=== PATIENT | female | born 1930 ===

== ENCOUNTER 2017-08-07 15:02 | Inpatient (IN) | payer MEDICARE, MEDICAID ==
[2017-08-07] MEDS ORDERED: Albuterol-Ipratrop 3 mg / 0.5 (3 ml) UD IH STA (15:30)
[2017-08-07] MEDS ORDERED: Albuterol-Ipratrop 3 mg / 0.5 (3 ml) UD INH STA ×2 (15:30→15:31)
[2017-08-07] MEDS ORDERED: Albuterol-Ipratrop 3 mg / 0.5 (3 ml) UD ONE (15:45)
--- NOTE | 2017-08-07 15:52 | ED PDOC ---
HPI: CCC, URI, Sore Throat Time Seen by Provider: 08/07/17 15:16 Chief Complaint (Nursing): Flu-like Symptoms Chief Complaint (Provider): Flu-like symptoms History Per: Patient, Family (daughter) History/Exam Limitations: no limitations Onset/Duration Of Symptoms: Days (x6) Current Symptoms Are (Timing): Still Present Associated Symptoms: Fever, Cough, Nasal Congestion, Other (SOB, weakness) Ear Symptoms: Bilateral: None Additional Complaint(s): Nora Palomino is an 86 year old female, with a past medical history of hypertension, who was brought to the emergency department via EMS accompanied by daughter complaining of fever, dyspnea, dry cough, congestion, weakness and decreased appetite onset for x6 days. Patient states she is not able to tolerate foods or fluids. Daughter reports patient was seen by Dr. Fuller in [place] yesterday and was prescribed zithromax and ventolin inhaler but with no relief. Worsening symptoms today. She denies any headache, nausea, vomit, diarrhea, chest pain or abdominal pain. No further medical complaints. PMD: Dr. Fuller, [place]. Past Medical History Reviewed: Historical Data, Nursing Documentation, Vital Signs Vital Signs: Last Vital Signs Temp 98.7 F 08/07/17 15:27 Pulse 88 08/07/17 15:27 Resp 18 08/07/17 15:27 BP 109/51 L 08/07/17 15:27 Pulse Ox 88 L 08/07/17 18:08 - Medical History PMH: Arthritis (right hand), Diabetes (type II), HTN, Hypercholesterolemia, Pneumonia - Surgical History Surgical History: No Surg Hx - Family History Family History: States: Unknown Family Hx - Living Arrangements Living Arrangements: With Family - Social History Current smoker - smoking cessation education provided: No Alcohol: None Drugs: Denies - Home Medications Home Medications: Ambulatory Orders Medication Instructions Recorded Amlodipine Besylate/Benazepril 1 cap PO DAILY 02/04/16 [Amlodipine-Benazepril 5-20 mg] Glyburide 5 mg PO BID 02/04/16 Metformin HCl 850 mg PO BID 02/04/16 Albuterol HFA [Ventolin HFA 90 2 puff IH Q6H PRN 08/07/17 mcg/actuation (8 g)] Azithromycin [Z-Ambrocio] 250 mg PO ASDIR 02/15/18 Benzonatate [Benzonatate] 200 mg PO TID PRN 08/07/17 Enalapril Maleate [Vasotec] 2.5 mg PO DAILY 08/07/17 [id number] Ethyl Esters 1 GM 2 gm PO Q12H 08/07/17 [Lovaza] - Allergies Allergies/Adverse Reactions: Allergies Allergy/AdvReac Type Severity Reaction Status Date / Time alendronate sodium Allergy RASH Verified 07/23/16 19:07 ciprofloxacin [From Cipro] Allergy RASH Verified 07/23/16 19:07 ciprofloxacin HCl Allergy RASH Verified 07/23/16 19:07 [From Cipro] glipizide Allergy RASH Verified 07/23/16 19:07 mepivacaine HCl Allergy RASH Verified 07/23/16 19:07 [From Carbocaine] papaverine Allergy RASH Verified 07/23/16 19:07 risedronate sodium Allergy RASH Verified 07/23/16 19:07 [From Actonel] simvastatin Allergy RASH Verified 07/23/16 19:07 sitagliptin phosphate Allergy RASH Verified 07/23/16 19:07 [From Januvia] Review of Systems ROS Statement: Except As Marked, All Systems Reviewed And Found Negative Constitutional: Positive for: Fever, Weakness ENT: Positive for: Nose Congestion Cardiovascular: Negative for: Chest Pain Respiratory: Positive for: Cough, Shortness of Breath Gastrointestinal: Positive for: Other (decreased appetite). Negative for: Nausea, Vomiting, Abdominal Pain, Diarrhea Neurological: Positive for: Weakness. Negative for: Headache Physical Exam - Reviewed Nursing Documentation Reviewed: Yes Vital Signs Reviewed: Yes - Physical Exam Appears: Positive for: Uncomfortable Head Exam: Positive for: ATRAUMATIC, NORMAL INSPECTION, NORMOCEPHALIC Skin: Positive for: Normal Color, Warm, Dry Eye Exam: Positive for: Normal appearance, EOMI, PERRL ENT: Positive for: Nasal Congestion Neck: Positive for: Painless ROM, Supple Cardiovascular/Chest: Positive for: Regular Rate, Rhythm. Negative for: Murmur Respiratory: Positive for: Decreased Breath Sounds, Other (mild coarse b/l). Negative for: Respiratory Distress Gastrointestinal/Abdominal: Positive for: Normal Exam, Soft. Negative for: Tenderness, Guarding, Rebound Back: Positive for: Normal Inspection. Negative for: L CVA Tenderness, R CVA Tenderness, Vertebral Tenderness Extremity: Positive for: Normal ROM, Other (cachectic feet). Negative for: Tenderness, Swelling Neurologic/Psych: Positive for: Alert, it associate II-XII, Oriented. Negative for: Aphasia - Laboratory Results Result Diagrams: 08/07/17 15:50 08/07/17 15:50 Interpretation Of Abn Labs: no acute - ECG ECG: Positive for: Interpreted By Me, Viewed By Me ECG Rhythm: Positive for: Normal QRS, Normal ST Segment, Sinus Rhythm O2 Sat by Pulse Oximetry: 88 (RA) Pulse Ox Interpretation: Abnormal - Radiology X-Ray: Interpreted by Me, Viewed By Me X-Ray Interpretation: Infiltrates (R) - Progress ED Course And Treament: 190: Stable. AAOx3. Spoke with Dr. Akers. Will admit tele. - Critical Care Total Time (In Min): 30 Documented Critical Care: Time excludes all time spent performint seperately billable procedures Medical Decision Making Medical Decision Making: Initial Impression: Viral syndrome Initial Plan: --ABG Shock panel --EKG --B-Type Natriuretic peptide --Magnesium --Phosphorus --Troponin I --CBC w/ differential --PTT --PT --Chest portable [RAD] --Tylenol 325mg tab 975mg PO --Duoneb 3ml INH --Lactated ringers 500 ml IV suppled [Empty IV bag] 1 IV --SOLU-medrol 125 mg IVP --Blood culture --Urine culture --Nebulizer treatment --Peak flow pre/post Tx --Influenza A B --Urinalysis --Reevaluation Scribe Attestation: Documented by Sushil Bynum, acting as a scribe for Nazario Loomis MD Provider Scribe Attestation: All medical record entries made by the Scribe were at my direction and personally dictated by me. I have reviewed the chart and agree that the record accurately reflects my personal performance of the history, physical exam, medical decision making, and the department course for this patient. I have also personally directed, reviewed, and agree with the discharge instructions and disposition. Disposition - Clinical Impression Clinical Impression: Severe sepsis, Pneumonia - Patient ED Disposition Is Patient to be Admitted: Yes - Disposition Disposition Time: 19:03 Condition: FAIR - Pt Status Changed To: Hospital Disposition Of: Inpatient - Admit Certification Admit to Inpatient:: After my assessment, the patient will require hospitalization for at least two midnights. This is because of the severity of symptoms shown, intensity of services needed, and/or the medical risk in this patient being treated as an outpatient. - POA Present On Arrival: None
[2017-08-07 16:06] LABS: BASO % 0.4 % (0.0-2.0); EOS % 0.1 % (0.0-4.0); HEMOGLOBIN 12.7 g/dL (12.0-16.0); LYMPH # 1.5 K/uL (1.0-4.3); LYMPH % 16.9 % (20.0-40.0); MEAN CELL VOLUME 90.8 fl (81.0-99.0); MEAN CORPUSCULAR HEMOGLOBIN 30.1 pg (27.0-31.0); MEAN CORPUSCULAR HGB CONC 33.1 g/dL (33.0-37.0); MONO # 0.7 K/uL (0.0-0.8); MONO % 8.2 % (0.0-10.0); NEUT # 6.7 K/uL (1.8-7.0); NEUT % 74.4 % (50.0-75.0); NRBC % 0.1 % (0.0-0.0); RBC 4.21 Mil/uL (3.80-5.20); RED CELL DISTRIBUTION WIDTH 13.6 % (11.5-14.5)
[2017-08-07 16:16] LABS: ABG ALLEN TEST YES; ARTERIAL BLOOD GAS HCO3 26.7 mmol/L (21-28); ARTERIAL BLOOD GAS O2 SAT 96.4 % (95-98); ARTERIAL BLOOD GAS PCO2 38 mm/Hg (35-45); ARTERIAL BLOOD GAS PH 7.45 (7.35-7.45); ARTERIAL BLOOD GAS PO2 69 mm/Hg (80-100); ARTERIAL BLOOD GAS TCO2 27.6 mmol/L (22-28)
[2017-08-07 16:17] LABS: ALB/GLOB RATIO 1.2 (1.0-2.1); ALBUMIN 4.2 g/dL (3.5-5.0); ALT/SGPT 22 U/L (9-52); AST/SGOT 28 U/L (14-36); BLOOD UREA NITROGEN 13 mg/dl (7-17); CALCIUM 8.7 mg/dL (8.4-10.2); GFR AFRICAN-AMERICAN > 60; GFR NON-AFRICAN AMERICAN > 60; MAGNESIUM 1.5 MG/DL (1.6-2.3)
[2017-08-07 16:27] LABS: B-TYPE NATRIURETIC PEPTIDE 579 pg/ml (0-900)
[2017-08-07 16:45] LABS: INR 1.1 (0.9-1.2); PROTHROMBIN TIME 12.7 Seconds (9.8-13.1)
[2017-08-07 16:46] LABS: PARTIAL THROMBOPLASTIN TIME 30.7 Seconds (25.6-37.1)
[2017-08-07] MEDS ORDERED: cefTRIAXone (Rocephin) 1 gm Inj IV ONE (19:00)
[2017-08-07] MEDS ORDERED: Azithromycin 500 MG in Sodium Chloride 0.9% 250 ML IVPB STA (19:07)
[2017-08-07] MEDS ORDERED: cefTRIAXone (Rocephin) 1 gm Inj ONE (19:20)
[2017-08-08] MEDS ORDERED: BENZONATATE 200 MG PO PRN (04:02)
[2017-08-08] MEDS ORDERED: Albuterol HFA 90 mcg/actuation (8 g) IH PRN (04:02)
[2017-08-08] MEDS ORDERED: Omega-3-Acid Ethyl Esters 1 GM Cap PO SCH (04:15)
[2017-08-08 06:12] LABS: MEAN CORPUSCULAR HGB CONC 34.9 g/dL (33.0-37.0); RBC 3.86 Mil/uL (3.80-5.20); RED CELL DISTRIBUTION WIDTH 13.2 % (11.5-14.5); WHITE BLOOD COUNT 9.7 K/uL (4.8-10.8)
[2017-08-08 06:26] LABS: ALB/GLOB RATIO 1.1 (1.0-2.1); ALBUMIN 3.6 g/dL (3.5-5.0); ALT/SGPT 19 U/L (9-52); AST/SGOT 21 U/L (14-36); BLOOD UREA NITROGEN 23 mg/dl (7-17); CALCIUM 8.4 mg/dL (8.4-10.2); GFR AFRICAN-AMERICAN > 60; GFR NON-AFRICAN AMERICAN > 60; HDL CHOLESTEROL 20 MG/DL (30-70)
[2017-08-08 06:39] LABS: LDL CHOLESTEROL 108 mg/dL (0-129)
[2017-08-08] MEDS: Insulin Regular 100 units/ml SC SCH ×4 (06:47→22:57)
--- NOTE | 2017-08-08 08:41 | RAD ---
HISTORY: Sepsis Patient COMPARISON: Chest radiograph dated 02/04/2016 FINDINGS: LUNGS: Right lower lung focal opacity. Stable chronic prominence of the bilateral interstitial markings PLEURA: No significant pleural effusion identified, no pneumothorax apparent. CARDIOVASCULAR: Atherosclerotic aortic calcifications. Cardiomediastinal silhouette stably prominent. OSSEOUS STRUCTURES: Unchanged. VISUALIZED UPPER ABDOMEN: Normal. OTHER FINDINGS: None. IMPRESSION: Right lower lung focal opacity which may represent infiltrate. Follow up to resolution.
[2017-08-08] MEDS ORDERED: BENAZEPRIL PO SCH (09:00)
[2017-08-08] MEDS ORDERED: Influenza Vaccine 18yr & older 0.5 ML/45 MCG SYR IM ONE (09:00)
[2017-08-08] MEDS ORDERED: [UNRECOGNIZED DRUG - OTHER] PO SCH (09:00)
[2017-08-08] MEDS ORDERED: AMLODIPINE BESYLATE PO SCH (09:00)
--- NOTE | 2017-08-08 09:43 | CP.PCM.HP ---
<Surendra Genao - Last Filed: 08/08/17 14:15> History of Present Illness - History of Present Illness History of Present Illness: PMD: Dr. Fuller, [place]. Patient evaluated at bedside with Dr Akers 86 year old female, with a past medical history of hypertension and NIDDM, was brought to the ED via EMS accompanied by daughter complaining of fever, dyspnea , wet cough, congestion, weakness and decreased appetite onset for x7 days. Patient lives with daughter and goes to adult day care for 5 hours daily. Daughter reports patient was seen by Dr. Fuller in [place] before presenting to ED and was prescribed zithromax and ventolin inhaler but with no relief. She denies any headache, nausea, vomit, diarrhea, chest pain or abdominal pain. No further medical complaints. CXR at ED suggests poss inflam changes and patient was started on IV abx Patient feeling much better today PMHx: NIDDM, HTN SxHx: Hysterectomy, L/forearm fx, cystocele, eye Sx SHx: Denies tobacco, etoh or drugs Present on Admission - Present on Admission Any Indicators Present on Admission: No Review of Systems - Review of Systems All systems: reviewed and no additional remarkable complaints except - Constitutional Constitutional: Anorexia, Malaise, Weakness - Respiratory Respiratory: Cough - Musculoskeletal Musculoskeletal: Abnormal Gait, Deformity Past Patient History - Infectious Disease Hx of Infectious Diseases: None - Past Medical History & Family History Past Medical History?: Yes - Past Social History Smoking Status: Never Smoked - CARDIAC Hx Cardiac Disorders: Yes Hx Hypercholesterolemia: Yes Hx Hypertension: Yes - PULMONARY Hx Respiratory Disorders: Yes Hx Bronchitis: Yes Hx Pneumonia: Yes - NEUROLOGICAL Hx Neurological Disorder: No - HEENT Hx HEENT Problems: Yes Hx Cataracts: Yes (bilateral eyes) Other/Comment: wears eyeglasses - RENAL Hx Chronic Kidney Disease: No - ENDOCRINE/METABOLIC Hx Endocrine Disorders: Yes Hx Diabetes Mellitus Type 2: Yes - HEMATOLOGICAL/ONCOLOGICAL Hx Blood Disorders: No - INTEGUMENTARY Hx Dermatological Problems: No - MUSCULOSKELETAL/RHEUMATOLOGICAL Hx Musculoskeletal Disorders: Yes Hx Arthritis: Yes (right hand) Hx Falls: Yes Hx Fractures: Yes (Left arm, left knee) Hx Osteoporosis: Yes Other/Comment: chronic left leg deformity, left foot club - GASTROINTESTINAL Hx Gastrointestinal Disorders: No - GENITOURINARY/GYNECOLOGICAL Hx Genitourinary Disorders: No - PSYCHIATRIC Hx Psychophysiologic Disorder: No Hx Substance Use: No - SURGICAL HISTORY Hx Surgeries: Yes Hx Hysterectomy: Yes Hx Orthopedic Surgery: Yes (left arm with 2 plates) - ANESTHESIA Hx Anesthesia: Yes Hx Anesthesia Reactions: No Hx Malignant Hyperthermia: No Meds Allergies/Adverse Reactions: Allergies Allergy/AdvReac Type Severity Reaction Status Date / Time alendronate sodium Allergy RASH Verified 07/23/16 19:07 ciprofloxacin [From Cipro] Allergy RASH Verified 07/23/16 19:07 ciprofloxacin HCl Allergy RASH Verified 07/23/16 19:07 [From Cipro] glipizide Allergy RASH Verified 07/23/16 19:07 mepivacaine HCl Allergy RASH Verified 07/23/16 19:07 [From Carbocaine] papaverine Allergy RASH Verified 07/23/16 19:07 risedronate sodium Allergy RASH Verified 07/23/16 19:07 [From Actonel] simvastatin Allergy RASH Verified 07/23/16 19:07 sitagliptin phosphate Allergy RASH Verified 07/23/16 19:07 [From Januvia] Physical Exam - Constitutional Appears: Non-toxic, No Acute Distress - Eye Exam Eye Exam: EOMI, PERRL - ENT Exam ENT Exam: Mucous Membranes Moist - Respiratory Exam Respiratory Exam: Rales (BB), NORMAL BREATHING PATTERN. absent: Rhonchi, Wheezes - Cardiovascular Exam Cardiovascular Exam: REGULAR RHYTHM, +S1, +S2. absent: Gallop - GI/Abdominal Exam GI & Abdominal Exam: Normal Bowel Sounds, Soft. absent: Distended, Rebound, Tenderness - Extremities Exam Extremities exam: Positive for: normal capillary refill. Negative for: pedal edema, tenderness Additional comments: Deformity - Neurological Exam Neurological exam: Alert, Oriented x3, Reflexes Normal - Psychiatric Exam Psychiatric exam: Normal Affect, Normal Mood - Skin Skin Exam: Normal Color, Warm Results - Vital Signs Recent Vital Signs: Last Vital Signs Temp 97.9 F 08/08/17 08:00 Pulse 91 H 08/08/17 08:00 Resp 18 08/08/17 08:00 BP 158/69 H 08/08/17 08:00 Pulse Ox 95 08/08/17 08:00 - Labs Result Diagrams: 08/08/17 04:45 08/08/17 04:45 Labs: Laboratory Results - last 24 hr 08/07/17 08/07/17 08/07/17 15:50 15:50 15:50 WBC 9.0 RBC 4.21 Hgb 12.7 Hct 38.2 MCV 90.8 MCH 30.1 MCHC 33.1 RDW 13.6 Plt Count 195 MPV 8.0 Neut % (Auto) 74.4 Lymph % (Auto) 16.9 L [place] % (Auto) 8.2 Eos % (Auto) 0.1 Baso % (Auto) 0.4 Neut # (Auto) 6.7 Lymph # (Auto) 1.5 [place] # (Auto) 0.7 Eos # (Auto) 0.0 Baso # (Auto) 0.0 PT 12.7 INR 1.1 APTT 30.7 pCO2 pO2 HCO3 ABG pH ABG Total CO2 ABG O2 Saturation ABG Base Excess Jacky Test ABG Potassium A-a O2 Difference Glucose Lactate FiO2 Sodium 135 Potassium 3.9 Chloride 96 L Carbon Dioxide 26 Anion Gap 17 BUN 13 Creatinine 0.6 L Est GFR ( Amer) > 60 Est GFR (Non-Af Amer) > 60 POC Glucose (mg/dL) Random Glucose 188 H Calcium 8.7 Phosphorus 2.5 Magnesium 1.5 L Total Bilirubin 0.6 AST 28 ALT 22 Alkaline Phosphatase 59 Troponin I 0.0220 NT-Pro-B Natriuret Pep 579 Total Protein 7.7 Albumin 4.2 Globulin 3.5 Albumin/Globulin Ratio 1.2 Triglycerides Cholesterol LDL Cholesterol Direct HDL Cholesterol Vitamin B12 TSH 3rd Generation Arterial Blood Potassium Influenza Typ A,B (EIA) 08/07/17 08/07/17 08/07/17 15:50 16:12 22:54 WBC RBC Hgb Hct MCV MCH MCHC RDW Plt Count MPV Neut % (Auto) Lymph % (Auto) [place] % (Auto) Eos % (Auto) Baso % (Auto) Neut # (Auto) Lymph # (Auto) [place] # (Auto) Eos # (Auto) Baso # (Auto) PT INR APTT pCO2 38 pO2 69 L HCO3 26.7 ABG pH 7.45 ABG Total CO2 27.6 ABG O2 Saturation 96.4 ABG Base Excess 2.4 Jacky Test Yes ABG Potassium 3.5 L A-a O2 Difference 112.0 Glucose 264 H Lactate 1.1 FiO2 32.0 Sodium 129.0 L Potassium Chloride 97.0 L Carbon Dioxide Anion Gap BUN Creatinine Est GFR ( Amer) Est GFR (Non-Af Amer) POC Glucose (mg/dL) 322 H Random Glucose Calcium Phosphorus Magnesium Total Bilirubin AST ALT Alkaline Phosphatase Troponin I NT-Pro-B Natriuret Pep Total Protein Albumin Globulin Albumin/Globulin Ratio Triglycerides Cholesterol LDL Cholesterol Direct HDL Cholesterol Vitamin B12 TSH 3rd Generation Arterial Blood Potassium 3.5 L Influenza Typ A,B (EIA) Negative for flu a/b 08/08/17 08/08/17 08/08/17 04:45 04:45 05:50 WBC 9.7 RBC 3.86 Hgb 12.0 Hct 34.3 MCV 89.0 MCH 31.0 MCHC 34.9 RDW 13.2 Plt Count 182 MPV Neut % (Auto) Lymph % (Auto) [place] % (Auto) Eos % (Auto) Baso % (Auto) Neut # (Auto) Lymph # (Auto) [place] # (Auto) Eos # (Auto) Baso # (Auto) PT INR APTT pCO2 pO2 HCO3 ABG pH ABG Total CO2 ABG O2 Saturation ABG Base Excess Jacky Test ABG Potassium A-a O2 Difference Glucose Lactate FiO2 Sodium 135 Potassium 3.9 Chloride 96 L Carbon Dioxide 24 Anion Gap 19 BUN 23 H Creatinine 0.7 Est GFR ( Amer) > 60 Est GFR (Non-Af Amer) > 60 POC Glucose (mg/dL) 289 H Random Glucose 316 H Calcium 8.4 Phosphorus Magnesium Total Bilirubin 0.3 AST 21 ALT 19 Alkaline Phosphatase 47 Troponin I NT-Pro-B Natriuret Pep Total Protein 6.9 Albumin 3.6 Globulin 3.3 Albumin/Globulin Ratio 1.1 Triglycerides 74 Cholesterol 145 LDL Cholesterol Direct 108 HDL Cholesterol 20 L Vitamin B12 316 TSH 3rd Generation 0.60 Arterial Blood Potassium Influenza Typ A,B (EIA) Assessment & Plan - Assessment and Plan (Free Text) Assessment: 86 y/o F with Hx of HTn and NIDDM admitted for CAP Community acquired pneumonia Acute, Improved CXR suggests R/lower lobe infiltrates: Please see full report No WBC. No SIRS criteria at this time VS stable, Afebrile since admitted C/W Rocephin and Zithromax IV NIDDM with hyperglycemia Uncontrolled C/W Home meds for now ISS AC Hypoglycemia protocol HTN Chronic, controlled C/W Home meds Prophylaxis Lovenox Florastor <Micky Akers - Last Filed: 02/16/18 16:54> Results - Vital Signs Recent Vital Signs: Last Vital Signs Temp 97.6 F 08/08/17 16:44 Pulse 69 08/08/17 16:44 Resp 16 08/08/17 16:44 BP 110/53 L 08/08/17 16:44 Pulse Ox 93 L 08/08/17 16:44 - Labs Result Diagrams: 08/08/17 04:45 08/08/17 04:45 Labs: Laboratory Results - last 24 hr 08/07/17 08/08/17 08/08/17 22:54 04:45 04:45 WBC 9.7 RBC 3.86 Hgb 12.0 Hct 34.3 MCV 89.0 MCH 31.0 MCHC 34.9 RDW 13.2 Plt Count 182 Sodium 135 Potassium 3.9 Chloride 96 L Carbon Dioxide 24 Anion Gap 19 BUN 23 H Creatinine 0.7 Est GFR ( Amer) > 60 Est GFR (Non-Af Amer) > 60 POC Glucose (mg/dL) 322 H Random Glucose 316 H Calcium 8.4 Total Bilirubin 0.3 AST 21 ALT 19 Alkaline Phosphatase 47 Total Protein 6.9 Albumin 3.6 Globulin 3.3 Albumin/Globulin Ratio 1.1 Triglycerides 74 Cholesterol 145 LDL Cholesterol Direct 108 HDL Cholesterol 20 L Vitamin B12 316 TSH 3rd Generation 0.60 08/08/17 08/08/17 05:50 11:28 WBC RBC Hgb Hct MCV MCH MCHC RDW Plt Count Sodium Potassium Chloride Carbon Dioxide Anion Gap BUN Creatinine Est GFR ( Amer) Est GFR (Non-Af Amer) POC Glucose (mg/dL) 289 H 371 H Random Glucose Calcium Total Bilirubin AST ALT Alkaline Phosphatase Total Protein Albumin Globulin Albumin/Globulin Ratio Triglycerides Cholesterol LDL Cholesterol Direct HDL Cholesterol Vitamin B12 TSH 3rd Generation Assessment & Plan - Assessment and Plan (Free Text) Assessment: Patient was personally seen and examined by me in rounds with residents. Available labs and diagnostic data reviewed. Case, Patient's condition and management plan discussed with residents in rounds. Agree with resident's documentation. Plan: As ordered. Micky Akers MD
[2017-08-08] MEDS: Omega-3-Acid Ethyl Esters 1 GM Cap PO SCH ×2 (09:58→21:34)
[2017-08-08] MEDS: Enoxaparin 40 mg Syringe SC SCH (09:58)
[2017-08-08] MEDS: Azithromycin 500 MG in Sodium Chloride 0.9% 250 ML IVPB SCH (10:00)
[2017-08-08] MEDS: cefTRIAXone 2 GM in Sodium Chloride 0.9% 100 ML IVPB SCH (12:41)
[2017-08-08] MEDS: Saccharomyces Boulardi 250 mg Cap PO SCH (17:39)
--- NOTE | 2017-08-08 19:12 | CARD ---
APPROVED REPORT EKG Measurement Heart [id number] <Conclusion> Normal sinus rhythm Normal ECG
[2017-08-09] MEDS: Insulin Regular 100 units/ml SC SCH ×4 (07:06→22:59)
[2017-08-09] MEDS: Saccharomyces Boulardi 250 mg Cap PO SCH ×2 (09:08→17:18)
[2017-08-09] MEDS: Omega-3-Acid Ethyl Esters 1 GM Cap PO SCH ×2 (09:09→21:34)
[2017-08-09] MEDS: Enoxaparin 40 mg Syringe SC SCH (09:09)
[2017-08-09] MEDS: cefTRIAXone 2 GM in Sodium Chloride 0.9% 100 ML IVPB SCH (09:11)
[2017-08-09] MEDS: Azithromycin 500 MG in Sodium Chloride 0.9% 250 ML IVPB SCH (09:12)
[2017-08-09 22:39] LABS: URINE BILIRUBIN NEGATIVE (NEGATIVE); URINE BLOOD NEGATIVE (NEGATIVE); URINE CLARITY CLEAR (Clear); URINE COLOR STRAW (YELLOW); URINE GLUCOSE (UA) NEG (Normal); URINE LEUKOCYTE ESTERASE NEG Leu/uL (Negative); URINE NITRATE NEGATIVE (NEGATIVE); URINE PROTEIN NEGATIVE (NEGATIVE); URINE UROBILINOGEN 0.2-1.0 mg/dL (0.2-1.0)
[2017-08-10 07:01] LABS: MEAN CELL VOLUME 90.8 fl (81.0-99.0); MEAN CORPUSCULAR HEMOGLOBIN 30.7 pg (27.0-31.0); MEAN CORPUSCULAR HGB CONC 33.8 g/dL (33.0-37.0); RBC 3.92 Mil/uL (3.80-5.20); RED CELL DISTRIBUTION WIDTH 13.7 % (11.5-14.5); WHITE BLOOD COUNT 8.2 K/uL (4.8-10.8)
[2017-08-10 07:38] LABS: ALBUMIN 3.5 g/dL (3.5-5.0); ALT/SGPT 17 U/L (9-52); AST/SGOT 22 U/L (14-36); BLOOD UREA NITROGEN 15 mg/dl (7-17); CALCIUM 8.9 mg/dL (8.4-10.2); GFR AFRICAN-AMERICAN > 60; GFR NON-AFRICAN AMERICAN > 60
[2017-08-10] MEDS: Insulin Regular 100 units/ml SC SCH ×4 (08:38→22:02)
[2017-08-10] MEDS: Saccharomyces Boulardi 250 mg Cap PO SCH ×2 (08:38→17:17)
[2017-08-10] MEDS: Omega-3-Acid Ethyl Esters 1 GM Cap PO SCH ×2 (08:40→21:53)
[2017-08-10] MEDS: Enoxaparin 40 mg Syringe SC SCH (08:40)
[2017-08-10] MEDS: cefTRIAXone 2 GM in Sodium Chloride 0.9% 100 ML IVPB SCH (08:41)
[2017-08-10] MEDS: Azithromycin 500 MG in Sodium Chloride 0.9% 250 ML IVPB SCH (09:18)
--- NOTE | 2017-08-10 09:41 | PN ---
DATE: 08/10/2017 SUBJECTIVE: The patient is seen and examined. Interim events noted. The patient remains in Progressive Care Unit on telemetry monitoring. She is sleeping and arousable, not a good historian. Denies any specific complaint. no specific issue reported by nursing staff. PHYSICAL EXAMINATION: GENERAL: The patient is in no acute distress. VITAL SIGNS: Stable. HEART: S1 and S2, normal and regular. LUNGS: Good bilateral air exchange. ABDOMEN: Soft and nontender. EXTREMITIES: No edema. No calf swelling. No tenderness. No acute ischemia. BEATER HEAD: Essentially unchanged. DIAGNOSTIC DATA: Available diagnostic data reviewed. Telemetry monitoring does not reveal any significant arrhythmia. PLAN: Overall, the patient's general medical condition is stable. Feeling improved. Plan as ordered. Micky Akers MD
[2017-08-10 11:45] LABS: ALBUMIN 3.5 g/dL (3.5-5.0); ALT/SGPT 24 U/L (9-52); AST/SGOT 25 U/L (14-36); BLOOD UREA NITROGEN 16 mg/dl (7-17); CALCIUM 8.8 mg/dL (8.4-10.2); GFR AFRICAN-AMERICAN > 60; GFR NON-AFRICAN AMERICAN > 60
[2017-08-11 05:50] LABS: HEMOGLOBIN 12.4 g/dL (12.0-16.0); MEAN CELL VOLUME 90.3 fl (81.0-99.0); MEAN CORPUSCULAR HEMOGLOBIN 30.6 pg (27.0-31.0); MEAN CORPUSCULAR HGB CONC 33.9 g/dL (33.0-37.0); RBC 4.05 Mil/uL (3.80-5.20); RED CELL DISTRIBUTION WIDTH 13.1 % (11.5-14.5); WHITE BLOOD COUNT 7.5 K/uL (4.8-10.8)
[2017-08-11] MEDS: Omega-3-Acid Ethyl Esters 1 GM Cap PO SCH ×2 (09:09→22:32)
[2017-08-11] MEDS: Insulin Regular 100 units/ml SC SCH ×4 (09:10→22:33)
[2017-08-11] MEDS: Saccharomyces Boulardi 250 mg Cap PO SCH ×2 (09:10→16:07)
[2017-08-11] MEDS: Enoxaparin 40 mg Syringe SC SCH (09:10)
[2017-08-11] MEDS: cefTRIAXone 2 GM in Sodium Chloride 0.9% 100 ML IVPB SCH (09:11)
[2017-08-11] MEDS: Azithromycin 500 MG in Sodium Chloride 0.9% 250 ML IVPB SCH (09:18)
--- NOTE | 2017-08-11 10:19 | PN ---
DATE: 08/11/2017 SUBJECTIVE: The patient is seen and examined. Interim events noted. The patient remains in regular medical floor with telemetry monitoring. The patient is sleepy, arousable. Feels okay. Not able to provide informative history or review of systems, but denies any specific complaint. No specific issue reported by nursing staff. PHYSICAL EXAMINATION: GENERAL: The patient is in no acute distress. VITAL SIGNS: Stable. HEART: S1 and S2, normal and regular. LUNGS: Good bilateral air exchange. ABDOMEN: Soft and nontender. EXTREMITIES: No edema. No calf swelling. No tenderness. No acute ischemia. CENTRAL NERVOUS SYSTEM: Exam is essentially unchanged. DIAGNOSTIC DATA: Available diagnostic data reviewed. Telemetry monitoring does not reveal any significant arrhythmia. PLAN: Overall, the patient's general medical condition is stable. Plan as ordered. Micky Akers MD
--- NOTE | 2017-08-11 14:21 | CP.PCM.PCO ---
Assessment/Plan - Assessment and Plan (Free Text) Assessment: Patient seen and examined, awake alert oriented Denies chest pain,shortness of breath. repeat chest xray pending. Discharge plan discussed with Dr vela, plan for pt/continued rehab and iv abx 3- 5 more days.
--- NOTE | 2017-08-11 16:16 | RAD ---
HISTORY: COMPARISON: 08/07/2017. TECHNIQUE: Chest PA and lateral FINDINGS: LINES AND TUBES: None. LUNG AND PLEURA: The lungs are well inflated and clear. HEART AND MEDIASTINUM: This persistent mild cardiomegaly. There are advanced atherosclerotic aortic calcifications. The hilar and mediastinal contours are within normal limits. SKELETAL STRUCTURES: The bony structures are within normal limits for the patient's age. VISUALIZED UPPER ABDOMEN: Normal. OTHER FINDINGS: None. IMPRESSION: No active pulmonary disease.
[2017-08-12 06:03] LABS: HEMOGLOBIN 12.6 g/dL (12.0-16.0); MEAN CELL VOLUME 90.9 fl (81.0-99.0); MEAN CORPUSCULAR HEMOGLOBIN 30.6 pg (27.0-31.0); MEAN CORPUSCULAR HGB CONC 33.7 g/dL (33.0-37.0); RBC 4.12 Mil/uL (3.80-5.20); RED CELL DISTRIBUTION WIDTH 13.4 % (11.5-14.5)
[2017-08-12 06:17] LABS: ALBUMIN 3.7 g/dL (3.5-5.0); ALT/SGPT 22 U/L (9-52); AST/SGOT 21 U/L (14-36); BLOOD UREA NITROGEN 15 mg/dl (7-17); CALCIUM 9.1 mg/dL (8.4-10.2); GFR AFRICAN-AMERICAN > 60; GFR NON-AFRICAN AMERICAN > 60
[2017-08-12] MEDS: Insulin Regular 100 units/ml SC SCH ×2 (06:58→12:50)
--- NOTE | 2017-08-12 07:56 | PN ---
DATE: 08/09/2017 SUBJECTIVE: The patient is seen and examined. Interim events noted. The patient remains in progressive care unit on telemetry monitoring. The patient is sleeping and arousable . No chest pain or shortness of breath or coughing. PHYSICAL EXAMINATION: GENERAL: The patient is in no acute distress. VITAL SIGNS: Stable. HEART: S1 and S2, normal and regular. LUNGS: Good bilateral air exchange. ABDOMEN: Soft and nontender. EXTREMITIES: No edema, no calf swelling. No tenderness. No acute ischemia. PLATING TECHNICIAN: Exam is essentially unchanged. DIAGNOSTIC DATA: Available diagnostic data reviewed. PLAN: Overall, the patient's general medical condition is slowly improving. Plan as ordered. Micky Akers MD
[2017-08-12] MEDS ORDERED: Enoxaparin 40 mg Syringe SC SCH (09:00)
[2017-08-12] MEDS: Omega-3-Acid Ethyl Esters 1 GM Cap PO SCH (09:17)
[2017-08-12] MEDS: Saccharomyces Boulardi 250 mg Cap PO SCH (09:17)
[2017-08-12] MEDS: cefTRIAXone 2 GM in Sodium Chloride 0.9% 100 ML IVPB SCH (09:36)
[2017-08-12 12:16] VITALS: BP 128/70; PULSE 70; RESP 18; TEMP 97.9; O2SAT 93
[2017-08-12] MEDS: Azithromycin 500 MG in Sodium Chloride 0.9% 250 ML IVPB SCH (12:46)
--- NOTE | 2017-08-12 14:05 | CP.PCM.DIS ---
Provider - Provider Date of Admission: 08/07/17 19:01 Attending physician: Micky Akers MD Time Spent in preparation of Discharge (in minutes): 30 Diagnosis - Discharge Diagnosis (1) Pneumonia Status: Acute Comment: CAP. Improved. Repeat CXR reported as no active disease. S/P Rocephin and Zithromax for 5 days. C/W Zithromax as outpatient (2) Type 2 diabetes mellitus without complications Status: Chronic Comment: Stable. C/W home treatment Hospital Course - Lab Results Lab Results: Micro Results 08/07/17 17:20 Blood Blood Culture - Preliminary NO GROWTH AFTER 4 DAYS 08/07/17 15:50 Blood Blood Culture - Preliminary NO GROWTH AFTER 4 DAYS Most Recent Lab Values WBC 8.0 K/uL (4.8-10.8) 08/12/17 04:30 RBC 4.12 Mil/uL (3.80-5.20) 08/12/17 04:30 Hgb 12.6 g/dL (12.0-16.0) 08/12/17 04:30 Hct 37.5 % (34.0-47.0) 08/12/17 04:30 MCV 90.9 fl (81.0-99.0) 08/12/17 04:30 MCH 30.6 pg (27.0-31.0) 08/12/17 04:30 MCHC 33.7 g/dL (33.0-37.0) 08/12/17 04:30 RDW 13.4 % (11.5-14.5) 08/12/17 04:30 Plt Count 261 K/uL (130-400) 08/12/17 04:30 MPV 8.0 fl (7.2-11.7) 08/07/17 15:50 Neut % (Auto) 74.4 % (50.0-75.0) 08/07/17 15:50 Lymph % (Auto) 16.9 % (20.0-40.0) L 08/07/17 15:50 Nicholas % (Auto) 8.2 % (0.0-10.0) 08/07/17 15:50 Eos % (Auto) 0.1 % (0.0-4.0) 08/07/17 15:50 Baso % (Auto) 0.4 % (0.0-2.0) 08/07/17 15:50 Neut # (Auto) 6.7 K/uL (1.8-7.0) 08/07/17 15:50 Lymph # (Auto) 1.5 K/uL (1.0-4.3) 08/07/17 15:50 Nicholas # (Auto) 0.7 K/uL (0.0-0.8) 08/07/17 15:50 Eos # (Auto) 0.0 K/uL (0.0-0.7) 08/07/17 15:50 Baso # (Auto) 0.0 K/uL (0.0-0.2) 08/07/17 15:50 PT 12.7 Seconds (9.8-13.1) 08/07/17 15:50 INR 1.1 (0.9-1.2) 08/07/17 15:50 APTT 30.7 Seconds (25.6-37.1) 08/07/17 15:50 pCO2 38 mm/Hg (35-45) 08/07/17 16:12 pO2 69 mm/Hg (80-100) L 08/07/17 16:12 HCO3 26.7 mmol/L (21-28) 08/07/17 16:12 ABG pH 7.45 (7.35-7.45) 08/07/17 16:12 ABG Total CO2 27.6 mmol/L (22-28) 08/07/17 16:12 ABG O2 Saturation 96.4 % (95-98) 08/07/17 16:12 ABG Base Excess 2.4 mmol/L (-2.0-3.0) 08/07/17 16:12 Jacky Test Yes 08/07/17 16:12 ABG Potassium 3.5 mmol/L (3.6-5.2) L 08/07/17 16:12 A-a O2 Difference 112.0 mm/Hg 08/07/17 16:12 Sodium 129.0 mmol/L (132-148) L 08/07/17 16:12 Chloride 97.0 mmol/L (98-107) L 08/07/17 16:12 Glucose 264 mg/dL (65-105) H 08/07/17 16:12 Lactate 1.1 mmol/L (0.7-2.1) 08/07/17 16:12 FiO2 32.0 % 08/07/17 16:12 Sodium 142 mmol/l (132-148) 08/12/17 04:30 Potassium 3.8 MMOL/L (3.6-5.0) 08/12/17 04:30 Chloride 100 mmol/L (98-107) 08/12/17 04:30 Carbon Dioxide 28 mmol/L (22-30) 08/12/17 04:30 Anion Gap 18 (10-20) 08/12/17 04:30 BUN 15 mg/dl (7-17) 08/12/17 04:30 Creatinine 0.6 mg/dl (0.7-1.2) L 08/12/17 04:30 Est GFR ( Amer) > 60 08/12/17 04:30 Est GFR (Non-Af Amer) > 60 08/12/17 04:30 POC Glucose (mg/dL) 150 mg/dL (65-110) H 08/12/17 11:23 Random Glucose 137 mg/dL (65-105) H 08/12/17 04:30 Calcium 9.1 mg/dL (8.4-10.2) 08/12/17 04:30 Phosphorus 2.5 mg/dl (2.5-4.5) 08/07/17 15:50 Magnesium 1.5 MG/DL (1.6-2.3) L 08/07/17 15:50 Total Bilirubin 0.4 mg/dl (0.2-1.3) 08/12/17 04:30 AST 21 U/L (14-36) 08/12/17 04:30 ALT 22 U/L (9-52) 08/12/17 04:30 Alkaline Phosphatase 53 U/L (38-126) 08/12/17 04:30 Troponin I 0.0220 ng/mL (0.00-0.120) 08/07/17 15:50 NT-Pro-B Natriuret Pep 579 pg/ml (0-900) 08/07/17 15:50 Total Protein 7.3 G/DL (6.3-8.2) 08/12/17 04:30 Albumin 3.7 g/dL (3.5-5.0) 08/12/17 04:30 Globulin 3.5 gm/dL (2.2-3.9) 08/12/17 04:30 Albumin/Globulin Ratio 1.0 (1.0-2.1) 08/12/17 04:30 Triglycerides 74 mg/DL (0-149) 08/08/17 04:45 Cholesterol 145 mg/dL (0-199) 08/08/17 04:45 LDL Cholesterol Direct 108 mg/dL (0-129) 08/08/17 04:45 HDL Cholesterol 20 MG/DL (30-70) L 08/08/17 04:45 Vitamin B12 316 pg/mL (239-931) 08/08/17 04:45 TSH 3rd Generation 0.60 mIU/ML (0.46-4.68) 08/08/17 04:45 Arterial Blood Potassium 3.5 mmol/L (3.6-5.2) L 08/07/17 16:12 Urine Color Straw (YELLOW) 08/09/17 22:20 Urine Clarity Clear (Clear) 08/09/17 22:20 Urine pH 7.0 (5.0-8.0) 08/09/17 22:20 Ur Specific [place] 1.011 (1.003-1.030) 08/09/17 22:20 Urine Protein Negative mg/dL (NEGATIVE) 08/09/17 22:20 Urine Glucose (UA) Neg mg/dL (Normal) 08/09/17 22:20 Urine Ketones Negative mg/dL (NEGATIVE) 08/09/17 22:20 Urine Blood Negative (NEGATIVE) 08/09/17 22:20 Urine Nitrate Negative (NEGATIVE) 08/09/17 22:20 Urine Bilirubin Negative (NEGATIVE) 08/09/17 22:20 Urine Urobilinogen 0.2-1.0 mg/dL (0.2-1.0) 08/09/17 22:20 Ur Leukocyte Esterase Neg Tisha/uL (Negative) 08/09/17 22:20 Urine RBC (Auto) 2 /hpf (0-3) 08/09/17 22:20 Urine Microscopic WBC < 1 /hpf (0-5) 08/09/17 22:20 Influenza Typ A,B (EIA) Negative for flu a/b (NEGATIVE) 08/07/17 15:50 - Hospital Course Hospital Course: 86 y/o F with PMHx of DM and HTN admitted for CAP, treated with IV abx and with improvement in BS levels while in the hosp is decided to DC home today after markedly improvement in medical status with PO abx and to F/u as outpatient. Discharge Exam - Head Exam Head Exam: ATRAUMATIC, NORMAL INSPECTION, NORMOCEPHALIC - Eye Exam Eye Exam: EOMI, PERRL - ENT Exam ENT Exam: Mucous Membranes Moist - Respiratory Exam Respiratory Exam: Clear to PA & Lateral, NORMAL BREATHING PATTERN. absent: Rales, Rhonchi, Respiratory Distress - Cardiovascular Exam Cardiovascular Exam: REGULAR RHYTHM, +S1, +S2. absent: Gallop - GI/Abdominal Exam GI & Abdominal Exam: Normal Bowel Sounds, Unremarkable - Extremities Exam Additional comments: Chronic B/L foot deformities - Back Exam Back exam: absent: CVA tenderness (L), CVA tenderness (R) - Neurological Exam Neurological exam: Alert, Oriented x3 - Psychiatric Exam Psychiatric exam: Normal Affect, Normal Mood - Skin Skin Exam: Normal Color, Warm Discharge Plan - Discharge Medications Prescriptions: Azithromycin [Zithromax] 500 mg PO DAILY #3 tab Benzonatate [Tessalon Perles] 200 mg PO TID PRN #21 sgl PRN Reason: Cough Saccharomyces Boulardi [Florastor] 250 mg PO BID #10 cap - Follow Up Plan Condition: STABLE Disposition: HOME/ ROUTINE Patient education suggested?: Yes Instructions: Pneumonia, Adult (DC), Sepsis, Adult (DC) Additional Instructions: pt. cleared for d/c to home today by spoke with daughter Rocio- pt. will f/u with on Friday Rx for meds provided Referrals: Micky Akers MD [Staff Provider] -
--- NOTE | 2017-08-13 09:35 | PQF SEPSIS ---
Dr. VAZQUEZ, ER PHYSICIAN DOCUMENTS CLINICAL IMPRESSION : SEVERE SEPSIS, PNEUMONIA. Pt. WITH TEMP. 102.8 and WBC - 9.0 ON ADMISSION. CAN YOU PLEASE CONFIRM IF DX. OF SEPSIS WAS RULED IN OR OUT. This form is a permanent part of the medical record* Clarification of your documentation is requested to better reflect the severity of illness and intensity of treatment of your patient. Indicators present [] Temp < 96.8 or > 100.4 [] WBC count > 12,000/mm3 or <000/mm3 or 10% immature neutrophils [] Heart Rate > 90 [] Respiratory Rate > 20 [] Fever or hypothermia [] Chills [] Positive blood cultures [] Hypotension [] Metabolic acidosis (Elevated lactate level, anion gap or reduced blood pH) [] Acute confusion /Altered Mental Status [] Shock [] Other: [] Location in the medical record that reflects the above clinical findings: [] Treatment Provided: [] PHYSICIAN'S RESPONSE Based on your medical judgment of the clinical indicators outlined above, are you treating this patient for a known or suspected: [] Sepsis / Septicemia Please specify organism if known [] [] SIRS (Systemic Inflammatory Response Syndrome) [] Severe Sepsis (Sepsis with Associated Organ Dysfunction) [] Fever of Unknown Origin [] Other, please indicate: [] [] If Unable to Determine, please check the box, sign and date. Present On Admission (POA) Indicator: [] Present at the time of admission [] Not present at the time of admission [] Clinically Undetermined In responding to this query, please exercise your independent professional judgment. The fact that a question is asked does not imply that any particular answer is desired or expected. Thank you for your clarification on this documentation. If you have any questions please call:[ ] * Thank you, [ ]DIANE STARK molecular biology professor AUDRE[facility]
== END 2017-08-12 13:30 | disposition home or self-care (01) | DRG 195 ==
LOC: H.ER 15:02 → H.ERHOLD 19:01 → H.TEL 08-08 00:38
PROVIDERS: ADMIT Internal Medicine; ATTEND Internal Medicine
PROC: 3E0234Z Introduction of Serum, Toxoid and Vaccine into Muscle, Percutaneous Approach (ICD-10-PCS; principal; 2017-08-08)
DX: J18.9 Pneumonia, unspecified organism (principal); E11.65 Type 2 diabetes mellitus with hyperglycemia; I10 Essential (primary) hypertension; E78.00 Pure hypercholesterolemia, unspecified; M81.0 Age-related osteoporosis without current pathological fracture; Z23 Encounter for immunization; M21.962 Unspecified acquired deformity of left lower leg; Z87.01 Personal history of pneumonia (recurrent); Z88.1 Allergy status to other antibiotic agents